=== PATIENT | female | born 2005 | race Caucasian/White ===

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

== ENCOUNTER 2023-05-08 11:48 | Emergency (ER) | payer OTHER ==
[~2023-05-08] VITALS: Ht 149.9 cm; Wt 49.0 kg
[~2023-05-08 11:48] MED LIST: AMOX-424 MT; TOPUD MT
[2023-05-08 14:45] VITALS: BP 110/60
== END 2023-05-08 14:49 | disposition home or self-care (01) ==
LOC: ER 11:48
DX: T74.21XA Adult sexual abuse, confirmed, initial encounter (principal)
CPT/HCPCS: 99283